=== PATIENT | female | born 1965 | race Caucasian/White ===

== ENCOUNTER 2020-10-21 19:01 | Emergency (ER) | payer OTHER ==
[2020-10-21] MEDS ORDERED: VIBRAMYCIN100 MG PO (20:23)
== END 2020-10-21 20:58 | disposition home or self-care (01) ==
LOC: FER 19:01
DX: S20.161A Insect bite (nonvenomous) of breast, right breast, initial encounter (principal); I10 Essential (primary) hypertension; Z88.7 Allergy status to serum and vaccine; Z91.040 Latex allergy status; W57.XXXA Bitten or stung by nonvenomous insect and other nonvenomous arthropods, initial encounter
CPT/HCPCS: 96372; J2930